=== PATIENT | female | born 1970 | race Caucasian/White ===

== ENCOUNTER 2024-11-13 14:44 | Outpatient (CLI) | payer OTHER, SELFPAY ==
--- NOTE | 2024-11-13 15:00 | CRLHL7_ITS ---
For Patients: As a result of the Century Cures Act, medical imaging exams and procedure reports are released immediately into your electronic medical record. You may view this report before your referring provider. If you have questions, please contact your health care provider. INDICATION: Chronic sinusitis. COMPARISON: None. TECHNIQUE: Noncontrast CT of the paranasal sinuses. FINDINGS: Bilateral maxillary sinuses are clear. No obstructing Stanton air cells. Ostiomeatal complexes are patent. Nasal cavity is clear. Slight nasal septal deviation to the right measuring less than 2 mm from midline. Visualized frontal sinuses and ethmoid air cells are clear. Sphenoid sinuses are clear. Bilateral sphenoid ostia patent. Partial pneumatization of the left anterior clinoid process. Pneumatization of the right sphenoid wing. Mastoid air cells are clear. No facial fractures. Normal orbits bilaterally. IMPRESSION: 1. Visualized paranasal sinuses and mastoid air cells are clear. 2. No facial fractures Please note that all CT scans at this facility use dose modulation, iterative reconstruction, and/or weight-based dosing when appropriate to reduce radiation dose to as low as reasonably achievable. Dictated by Kwesi Vallejo MD @ 11/13/2024 4:03:51 PM (Electronically Signed)
== END 2024-11-13 14:45 | disposition home or self-care (01) ==
PROVIDERS: PCP Physician Assistant; Visit Provider Otolaryngology
DX: J32.9 Chronic sinusitis, unspecified (principal)
CPT/HCPCS: 70486